=== PATIENT | male | born 1995 | race Caucasian/White ===

== ENCOUNTER → 2021-11-12 | Outpatient (CLI) | payer OTHER | END | disposition home or self-care (01) | LOC: PREOP 16:21 | PROVIDERS: ATTEND Urology | DX: Z01.818 Encounter for other preprocedural examination (principal) ==

== ENCOUNTER → 2021-11-12 | Outpatient (CLI) | payer OTHER ==
--- NOTE | 2021-11-12 17:50 | Diagnostic Imaging Report ---
Indication: Right-sided kidney stone. Time of Exam: 2:43 PM No prior studies are available for comparison. Bowel gas pattern is unremarkable. There are surgical clips in the right abdomen. There is a small calcific density 3 to 4 mm in size in the right hemipelvis which could represent a distal ureteric calculus. No other definite urinary tract calculi are seen. No calculi overlie the renal shadows. Impression: Questionable distal right ureteric calculus. The study is otherwise unremarkable. Dictated by: Dictated on workstation # [id number]
== END ==
LOC: RAD 14:29
PROVIDERS: ATTEND Urology
DX: N20.0 Calculus of kidney (principal)
CPT/HCPCS: 74018

== ENCOUNTER 2021-11-13 06:16 | Day surgery (SDC) | payer OTHER ==
[2021-11-13] VITALS (11 sets, daily range): BP systolic 97–140; BP diastolic 63–87
[~2021-11-13] VITALS: Ht 175.3 cm; Wt 97.0 kg
--- NOTE | 2021-11-13 07:07 | Progress Note-Pre Operative ---
Pre-Operative Progress Note H&P Reviewed The H&P was reviewed, patient examined and no changes noted. Date Seen by Provider: Nov 13, 2021 Time Seen by Provider: 07:07 Date H&P Reviewed: Nov 13, 2021 Time H&P Reviewed: 07:07 Pre-Operative Diagnosis: RT DISTAL URETERAL STONE TUCKER REESE MD Nov 13, 2021 07:07
[2021-11-13] MEDS ORDERED: cefTRIAXone 1 GM PRE-MIX 50 ML IV ONE (07:15)
[2021-11-13] MEDS: LACTATED RINGERS 1,000 ML IV SCH ×2 (07:15→08:36)
--- NOTE | 2021-11-13 07:17 | Diagnostic Imaging Report ---
INDICATION: Preoperative evaluation possible ESWL lithotripsy. EXAMINATION: Abdomen 11/13/2021 COMPARISON: 11/12/2021 FINDINGS: 2 views of the abdomen. There is postoperative change in the right lower quadrant. A tiny hyperdensity in the right aspect of the pelvis is stable from recent imaging possibly a stone. Hyperdensities in the left hemipelvis could represent phleboliths with ureteral stones difficult to exclude on this examination. There is a nonobstructive bowel gas pattern. IMPRESSION: 1. Nonspecific densities in the pelvis possibly ureteral stones with phleboliths not excluded. Findings stable from recent imaging. Dictated by: Dictated on workstation # [id number]
[2021-11-13] MEDS ORDERED: LACTATED RINGERS 1,000 ML IV SCH (08:00)
--- NOTE | 2021-11-13 08:07 | Progress Note-Post Operative ---
Post-Operative Progess Note Surgeon (s)/Intake Clinician (s) Surgeon TUCKER REESE MD Intake Clinician: NONE Pre-Operative Diagnosis ESWL Post-Operative Diagnosis SAME Procedure & Operative Findings Date of Procedure 11/13/21 Procedure Performed/Findings RT URETEROSCOPY WITH STONE BASKET Anesthesia Type GENERAL Estimated Blood Loss Estimated blood loss (mL): NONE Specimens/Packing Specimens Removed STONE Packing: NONE TUCKER REESE MD Nov 13, 2021 08:07
--- NOTE | 2021-11-13 08:08 | Discharge Inst-Urology ---
Discharge Inst-Urology Reconcile Patient Problems Problems Reviewed?: Yes Final Diagnosis RT DISTAL URETERAL STONE Patient Instructions/Follow Up Plan/Assessment/Instructions Please make appointment to been seen in office in 2 weeks. Increase oral fluids for 48 hours and then as needed. Diet and Activity as tolerated. If questions or concerns contact your physician Or seek help at emergency department. TUCKER REESE MD Nov 13, 2021 08:08
[2021-11-13] MEDS ORDERED: MIDAZOLAM 2 MG/2 ML (VERSED) VIAL ONE (08:11)
[2021-11-13] MEDS ORDERED: GLYCOPYRROLATE 0.2 MG/ML (ROBINUL) 2 ML VIAL ONE (08:11)
[2021-11-13] MEDS ORDERED: fentaNYL INJ 100 MCG/2 ML AMP ONE (08:11)
[2021-11-13] MEDS ORDERED: LIDOCAINE PF 2% 5 ML (XYLOCAINE) VIAL ONE (08:11)
[2021-11-13] MEDS ORDERED: proPOfol 200 MG/20 ML (DIPRIVAN) VIAL IV ONE (08:11)
[2021-11-13] MEDS ORDERED: ONDANSETRON 4 MG/2 ML (SDV) Z0FRAN ONE (08:11)
[2021-11-13] MEDS ORDERED: ROCURONIUM 50 MG/5 ML (ZEMURON) VIAL IV ONE (08:12)
[2021-11-13] MEDS ORDERED: NEOSTIGMINE (BLOXIVERZ ) 1 MG/1ML 10 ML VIAL ONE (08:12)
[2021-11-13] MEDS ORDERED: FUROSEMIDE 40 MG/4 ML INJ (LASIX) ONE (08:47)
[2021-11-13] MEDS ORDERED: KETOROLAC 30 MG/ML VIAL ONE (08:47)
[2021-11-13] MEDS ORDERED: SEVOFLURANE (ULTANE) 15 ML INHAL SOLN ONE (09:09)
[2021-11-13] MEDS ORDERED: ONDANSETRON 4 MG/2 ML (SDV) Z0FRAN IVP PRN (09:15)
[2021-11-13] MEDS ORDERED: morphine INJ 10 MG/ML 1ML (SYR OR VIAL) IVP ONE (09:15)
--- NOTE | 2021-11-13 12:20 | Anesthesia-General Post-Op ---
General Patient Condition Mental Status/LOC: Same as Preop Cardiovascular: Satisfactory Nausea/Vomiting: Absent Respiratory: Satisfactory Pain: Controlled Complications: Absent Post Op Complications Complications None Follow Up Care/Instructions Patient Instructions None needed. Anesthesia/Patient Condition Patient Condition Patient was doing well after the procedure, no complaints, stable vital signs, no apparent adverse anesthesia problems. No complications reported per nursing. CLAIRE TURCIOS DO Nov 13, 2021 12:20
--- NOTE | 2021-11-13 12:58 | OPERATIVE REPORT ---
DATE OF SERVICE: PREOPERATIVE DIAGNOSIS: Right distal ureteral stone. POSTOPERATIVE DIAGNOSIS: Right distal ureteral stone. OPERATION PERFORMED: Right ureteroscopy with stone basket. SURGEON: Adam Reese MD. ANESTHESIA: General. COMPLICATIONS: None. DESCRIPTION OF PROCEDURE: Under satisfactory general anesthesia, the patient in lithotomy position, genitalia were prepped and draped in the usual sterile fashion. Cystoscope was introduced under vision. The anterior urethra was normal. The prostate was nonobstructing. Bladder neck was open. The bladder jackson were normal. No foreign body, bladder tumor or stone visualized. Ureteric orifices were normal with clear efflux, very sluggish on the right side. Using the foroblique lens, I dilated the right ureteral orifice intramural portion, felt that I have disimpacted the stone. I passed a 6.9-Bulgarian semi-rigid ureteroscope, visualized the stone that was really spiky, but floating and a size amenable for basket. I did not want to lose the stone, so I passed a 3-Bulgarian Galo basket, engaged the stone and extracted it completely. I went back with ureteroscope all the way up to the proximal ureter and back antegrade fashion to confirm no more fragments of stones and confirmed the integrity of the ureter. I removed the ureteroscope, reinserted the cystoscope to empty the bladder. The patient tolerated the procedure and anesthesia well and was sent to recovery room in a stable condition. PLAN: We will see him back in two weeks to plan stone prevention. Job ID: [id number] DocumentID: [id number] Dictated Date: 11/13/2021 08:54:06 Slot Router Date: 11/13/2021 12:58:13 Dictated By: ADAM REESE MD
== END 2021-11-13 10:44 | disposition home or self-care (01) ==
LOC: SDC 06:16
PROVIDERS: ATTEND Urology
DX: N20.1 Calculus of ureter (principal)
CPT/HCPCS: 74018; 76000; 87081